=== PATIENT | female | born 1945 | race Caucasian/White ===

== ENCOUNTER 2024-04-03 12:07 | Emergency (ER) | payer MEDICARE, SELFPAY ==
[2024-04-03 12:27] VITALS: BP 148/76; PULSE 89; RESP 16; TEMP 36.4; O2SAT 98
--- NOTE | 2024-04-03 13:28 | ED.ABDPAIN ---
HPI - Abdominal Pain General Chief Complaint: Abdominal Pain Stated Complaint: AYALA,stomach ache Source: patient, RN notes reviewed and old records reviewed Mode of arrival: ambulatory Limitations: no limitations History of Present Illness HPI narrative: Patient presents with complaints of headache, nausea, vomiting, runny nose. She reports symptoms began suddenly yesterday morning. She does report a history of migraines. She does reports she always has vomiting with migraines. She traveled here from [place] last week. She has been vacationing. She has not taken anything for her symptoms, because she does not have anything. She has had some sneezing. She denies any fever, chills, sweats. Reports she just generally does not feel good Related Data Home Medications Medication Instructions Recorded Confirmed celecoxib 200 mg capsule 200 mg PO BID 04/03/24 04/03/24 fluticasone fur. 100 mcg-umeclid 1 inh inhalation DAILY 04/03/24 04/03/24 62.5 mcg-vilant 25 mcg inhalat.powder (Trelegy Ellipta) hydrochlorothiazide 12.5 mg capsule 12.5 mg PO DAILY 04/03/24 04/03/24 phenazopyridine 200 mg tablet 200 mg PO DAILY 04/03/24 04/03/24 rosuvastatin 5 mg tablet 5 mg PO DAILY 04/03/24 04/03/24 temazepam 15 mg capsule 15 mg PO DAILY 04/03/24 04/03/24 tizanidine 2 mg tablet 4 mg PO DAILY 04/03/24 04/03/24 Review of Systems Review of Systems: All systems reviewed & are unremarkable except as noted in HPI and below Constitutional: Constitutional: Reports as per HPI and Reports no additional constitutional complaints ENT: Reports system reviewed and no additional complaints, except as documented, Reports as per HPI, Reports headache(s) and Reports nasal discharge Cardiovascular: Cardiovascular: Reports as per HPI and Reports no additional cardiovascular complaints Respiratory: Respiratory: Reports as per HPI, Reports no additional respiratory complaints and Reports cough Gastrointestinal: Gastrointestinal: Reports no additional gastrointestinal complaints, Denies abdominal pain, Reports nausea and Reports vomiting PMFSH Comments At the time of my signature, I reviewed and agree with the nursing past medical, surgical, social, and family history. There is no relevant family history pertinent to the patient complaint. Exam Const: General: cooperative, no acute distress, alert and awake Orientation/consciousness: oriented to person, oriented to place and oriented to time HENMT: Head: normal to inspection Ears: TM's normal bilaterally Face/Nose/Sinus: Nasal discharge present clear Mouth: Yes moist mucous membranes Throat: posterior oropharynx abnormal erythema Resp: Effort & Inspection: normal respiratory effort and able to speak in complete sentences Auscultation: clear to auscultation bilaterally, no crackles, no rales, no rhonchi and no wheezes Cardio: Palpation: normal PMI Rate: regular rate Rhythm: regular rhythm Heart sounds: S1 normal heart sound present and S2 normal heart sound present GI: GI Palp: No abdominal tenderness and Yes Soft to palpation Auscultation: normal bowel sounds Neuro: General: oriented to person, oriented to place and oriented to time Cranial nerves: Yes CN's II-XII intact bilaterally Psych: Appearance: grossly normal Thought process: Normal thought process present Insight: Good insight present (Psych) Judgement: Good judgement present (Psych) Course Course Level of Care: Express Care Visit Vital Signs Vital signs: Vital Signs Temperature 97.5 F L 04/03/24 12:27 Pulse Rate 89 04/03/24 12:27 Respiratory Rate 16 04/03/24 12:27 Blood Pressure 148/76 H 04/03/24 12:27 Pulse Oximetry 98 04/03/24 12:27 Oxygen Delivery Room Air 04/03/24 12:27 Temperature 97.5 F L 04/03/24 12:27 Pulse Rate 89 04/03/24 12:27 Respiratory Rate 16 04/03/24 12:27 Blood Pressure 148/76 H 04/03/24 12:27 Pulse Oximetry 98 04/03/24 12:27 Oxygen Delivery Room Air 04/03/24 12:27
[2024-04-03 13:44] LABS: EDINFLUASCREEN Negative; EDINFLUBSCREEN Negative
[2024-04-03] MEDS: ONDANSETRON HCL ODT 4 MG TABLET PO (13:51)
== END 2024-04-03 13:58 | disposition home or self-care (01) ==
PROVIDERS: Emergency Provider Nurse Practitioner Family
DX: U07.1 COVID-19 (principal); I10 Essential (primary) hypertension; J45.909 Unspecified asthma, uncomplicated; Z95.810 Presence of automatic (implantable) cardiac defibrillator
CPT/HCPCS: 87426; 87804; 99203; A9270; G0463